=== PATIENT | female | born 2000 | race African-American/Black ===

== ENCOUNTER 2020-10-04 00:33 | Emergency (ER) | payer OTHER ==
[~2020-10-04] VITALS: Ht 157.5 cm; Wt 60.5 kg
--- NOTE | 2020-10-04 01:03 | PHYS DOC ---
General Adult EDM: Chief Complaint: ABDOMINAL PAIN HPI: HPI: 19-year-old female presents with right lower quadrant abdominal pain. Patient has had pain in this general area for last 4 days. It started off as a generalized pain vomiting and diarrhea. The diarrhea has improved but she still has intermittent vomiting. The last episode was this morning. The pain in her right lower quadrant has been persistent today and this evening. She decided she should come in for evaluation. She denies fever or chills. She has no vaginal discharge. She does not believe she is . Her menstrual cycles have been regular. Review of Systems: Review of Systems: Constitutional: Denies fever or chills Eyes: Denies change in visual acuity HENT: Denies nasal congestion or sore throat Respiratory: Denies cough or shortness of breath Cardiovascular: Denies chest pain or edema GI: RLQ abdominal pain, nausea, vomiting, diarrhea : Denies dysuria Musculoskeletal: Denies back pain or joint pain Integument: Denies rash Neurologic: Denies headache, focal weakness or sensory changes Endocrine: Denies polyuria or polydipsia Lymphatic: Denies swollen glands Psychiatric: Denies depression or anxiety Current Medications: Current Meds: Current Medications Medications (Trade) Dose Ordered Sig/Louisa Start Time Stop Time Status Last Admin Dose Admin Ondansetron HCl (Zofran) 4 mg 1X ONCE 10/04/20 01:00 10/04/20 01:01 UNV Sodium Chloride 1,000 ml @ 1,000 mls/hr 1X ONCE 10/04/20 01:00 10/04/20 01:59 UNV Physical Exam: PE: Constitutional: Well developed, well nourished, no acute distress, non-toxic appearance. [] HENT: Normocephalic, atraumatic, bilateral external ears normal, oropharynx moist, no oral exudates, nose normal. [] Eyes: PERRLA, EOMI, conjunctiva normal, no discharge. [] Neck: Normal range of motion, no tenderness, supple, no stridor. [] Cardiovascular:Heart rate regular rhythm, no murmur [] Lungs & Thorax: Bilateral breath sounds clear to auscultation [] Abdomen: Bowel sounds normal, soft, RLQ tenderness with rebound, positive psoas sign, no masses, no pulsatile masses. [] Skin: Warm, dry, no erythema, no rash. [] Back: No tenderness, no CVA tenderness. [] Extremities: No tenderness, no cyanosis, no clubbing, ROM intact, no edema. [] Neurologic: Alert and oriented X 3, normal motor function, normal sensory function, no focal deficits noted. [] Psychologic: Affect normal, judgement normal, mood normal. [] EKG: EKG: [] Radiology/Procedures: Radiology/Procedures: [] Impressions: CT SCAN OF THE ABDOMEN AND PELVIS WITH IV CONTRAST. History: Reason: RLQ abdominal pain Comparison:None. Procedure: Contiguous axial images of the abdomen and pelvis were performed after the administration of 75 cc of Omni 300 IV contrast. Oral contrast: No. Findings: The appendix is normal. The uterus appears normal. There are numerous follicles in the ovaries. The gallbladder is normal. Liver: Unremarkable Spleen: Unremarkable Pancreas: Unremarkable Adrenal Glands: Unremarkable Kidneys: Unremarkable There is no mass or lymphadenopathy. There is no free air. There is no free fluid. The urinary bladder appears normal. Impression: Numerous follicles in the ovaries could be polycystic ovarian disease. Clinical correlation is suggested. RS Compliance Statement: One or more of the following individualized dose reduction techniques were utilized for this examination: 1. Automated exposure control 2. Adjustment of the mA and/or kV according to patient size 3. Use of iterative reconstruction technique Electronically signed by: Cindy Ramon III, MD (10/04/2020 2:03 AM) [facility] DICTATED AND SIGNED BY: CINDY RAMON III, MD DATE: 10/04/20 0203 CC: JOY ROBERT DO; PCP,UNKNOWN ~ Heart Score: Risk Factors: Risk Factors: DM, Current or recent (<one month) smoker, HTN, HLP, family history of CAD, obesity. Risk Scores: Score 0 - 3: 2.5% MACE over next 6 weeks - Discharge Home Score 4 - 6: 20.3% MACE over next 6 weeks - Admit for Clinical Observation Score 7 - 10: 72.7% MACE over next 6 weeks - Early Invasive Strategies Course & Med Decision Making: Course & Med Decision Making Pertinent Labs and Imaging studies reviewed. (See chart for details) Patient's labs are unremarkable. Her CT scan is negative for appendicitis. She does have numerous follicles in the ovaries raising suspicion for polycystic ovarian disease. I have given the patient a copy of her CT report and advised that [place] She already has Zofran at home for nausea and vomiting. She is stable for disch arge at this time. [] Shola Disclaimer: Shola Disclaimer: This electronic medical record was generated, in whole or in part, using a voice recognition dictation system. Departure Departure: Impression: Primary Impression: Right lower quadrant abdominal pain Additional Impression: Follicular cyst of both ovaries Disposition: 01 DC HOME SELF CARE/HOMELESS Condition: STABLE Referrals: PCP,UNKNOWN (PCP) Patient Instructions: Polycystic Ovarian Syndrome JOY ROBERT DO Oct 04, 2020 01:03
[2020-10-04] MEDS ORDERED: IV NORMAL SALINE 1,000ML 1,000 ML IV ONE (01:15)
[2020-10-04] MEDS ORDERED: ONDANSETRON PF 4 MG/2 ML VIAL. IVP ONE (01:15)
[2020-10-04] MEDS ORDERED: CONTRAST GIVEN. MC PRN (01:30)
[2020-10-04] MEDS ORDERED: IOHEXOL 300 MG/ML 75 ML VIAL. IV ONE (01:30)
[2020-10-04 01:51] LABS: BASO % 0 % (0-3); EOS # 0.1 x10^3/uL (0.0-0.7); EOS % 1 % (0-3); HEMATOCRIT 43.4 % (36.0-47.0); HEMOGLOBIN 14.7 g/dL (12.0-15.5); LYMPH # 3.8 x10^3/uL (1.0-4.8); LYMPH % 44 % (24-48); MEAN CORPUSCULAR HEMOGLOBIN 32 pg (25-35); MEAN CORPUSCULAR HGB CONC 34 g/dL (31-37); MEAN CORPUSCULAR VOLUME 94 fL (79-100); MONO # 0.7 x10^3/uL (0.0-1.1); MONO % 8 % (0-9); NEUT # 4.1 x10^3uL (1.8-7.7); NEUT % 47 % (31-73); PLATELET COUNT 352 x10^3/uL (140-400); RED BLOOD COUNT 4.62 x10^6/uL (3.50-5.40); RED CELL DISTRIBUTION WIDTH 12.4 % (11.5-14.5); WHITE BLOOD COUNT 8.8 x10^3/uL (4.0-11.0)
[2020-10-04 01:59] LABS: CALCIUM 9.1 mg/dL (8.5-10.1); CREATININE 0.9 mg/dL (0.6-1.0); GFR 97.6; POTASSIUM 3.4 mmol/L (3.5-5.1)
[2020-10-04 01:59] LABS: BACTERIA,URINE FEW /HPF (0-FEW); BILIRUBIN,URINE NEG (NEG); CLARITY,URINE HAZY; COLOR,URINE YELLOW; GLUCOSE,URINE NEG (NEG); NITRITE,URINE NEG (NEG); RBC,URINE 0 /HPF (0-2); SQUAMOUS EPITHELIAL CELL,UR MANY /LPF; UROBILINOGEN,URINE 0.2 mg/dL (0.2 mg/dL)
--- NOTE | 2020-10-04 02:06 | RAD ---
CT SCAN OF THE ABDOMEN AND PELVIS WITH IV CONTRAST. History: Reason: RLQ abdominal pain Comparison:None. Procedure: Contiguous axial images of the abdomen and pelvis were performed after the administration of 75 cc of Omni 300 IV contrast. Oral contrast: No. Findings: The appendix is normal. The uterus appears normal. There are numerous follicles in the ovaries. The gallbladder is normal. Liver: Unremarkable Spleen: Unremarkable Pancreas: Unremarkable Adrenal Glands: Unremarkable Kidneys: Unremarkable There is no mass or lymphadenopathy. There is no free air. There is no free fluid. The urinary bladder appears normal. Impression: Numerous follicles in the ovaries could be polycystic ovarian disease. Clinical correlation is suggested. PQRS Compliance Statement: One or more of the following individualized dose reduction techniques were utilized for this examination: 1. Automated exposure control 2. Adjustment of the mA and/or kV according to patient size 3. Use of iterative reconstruction technique Electronically signed by: Kevin Ramon III, MD (10/04/2020 2:03 AM) [facility]
[2020-10-04 02:07] LABS: ALBUMIN 4.3 g/dL (3.4-5.0); ALBUMIN/GLOBULIN RATIO 1.1 (1.0-1.7); TOTAL BILIRUBIN 0.2 mg/dL (0.2-1.0); TOTAL PROTEIN 8.1 g/dL (6.4-8.2)
[2020-10-04 02:32] VITALS: BP 140/96
== END 2020-10-04 02:32 | disposition home or self-care (01) ==
LOC: ER 00:33
DX: N83.02 Follicular cyst of left ovary (principal); N83.01 Follicular cyst of right ovary; R11.2 Nausea with vomiting, unspecified
CPT/HCPCS: 36415; 74177; 80053; 81001; 81025; 85025; 96361; 96374; 99285; J2405; J7030; Q9967

== ENCOUNTER 2020-12-01 09:20 | Emergency (ER) | payer OTHER ==
[~2020-12-01] VITALS: Ht 157.5 cm; Wt 58.3 kg
--- NOTE | 2020-12-01 10:02 | PHYS DOC ---
Past History Past Medical History: Migraines Past Surgical History: Tonsillectomy Alcohol Use: None General Adult EDM: Chief Complaint: ABDOMINAL PAIN HPI: HPI: This is a pleasant 20-year-old female with a history of ovarian cysts who has been having intermittent right-sided pelvic pain for about 2 months. Her pain is a sharp shooting pain that comes and goes. She takes [id number] medication for some relief. She had been seen a few months ago in the ER and discharged. Her pain worsened yesterday and so she comes in today. The pain is nonradiating. She has had nausea and vomiting. She denies any changes in her bowel habits. She denies fevers chills or rashes. She denies any abdominal surgeries. Review of systems negative for chest pain shortness of breath. Positive for nausea and vomiting. Negative for fevers chills or rash. . She denies being . She denies vaginal bleeding All other review of systems negative. ED course: 20-year-old female presenting with lower abdominal/pelvic pain. Allergies: Allergies: Allergies Coded Allergies Type Severity Reaction Last Updated Verified No Known Allergies Allergy Unknown 12/01/20 Yes Physical Exam: PE: Constitutional: Well developed, well nourished, no acute distress, non-toxic appearance. [] HENT: Normocephalic, atraumatic, bilateral external ears normal, oropharynx moist, no oral exudates, nose normal. [] Eyes: PERRLA, EOMI, conjunctiva normal, no discharge. [] Neck: Normal range of motion, no tenderness, supple, no stridor. [] Cardiovascular:Heart rate regular rhythm, no murmur [] Lungs & Thorax: Bilateral breath sounds clear to auscultation [] Abdomen: Bowel sounds normal, soft, mildly tender to palpation of the lower right quadrant, no masses, no pulsatile masses. [] No rebound tenderness or guarding. Skin: Warm, dry, no erythema, no rash. [] Back: No tenderness, no CVA tenderness. [] Extremities: No tenderness, no cyanosis, no clubbing, ROM intact, no edema. [] Neurologic: Alert and oriented X 3, normal motor function, normal sensory function, no focal deficits noted. [] Psychologic: Affect normal, judgement normal, mood normal. [] EKG: EKG: [] Radiology/Procedures: Radiology/Procedures: [] Heart Score: Risk Factors: Risk Factors: DM, Current or recent (<one month) smoker, HTN, HLP, family history of CAD, obesity. Risk Scores: Score 0 - 3: 2.5% MACE over next 6 weeks - Discharge Home Score 4 - 6: 20.3% MACE over next 6 weeks - Admit for Clinical Observation Score 7 - 10: 72.7% MACE over next 6 weeks - Early Invasive Strategies Course & Med Decision Making: Course & Med Decision Making Pertinent Labs and Imaging studies reviewed. (See chart for details) [] Dragon Disclaimer: Dragon Disclaimer: This electronic medical record was generated, in whole or in part, using a voice recognition dictation system. Departure Departure: Impression: Primary Impression: Abdominal pain Additional Impression: UTI (urinary tract infection) Disposition: 01 DC HOME SELF CARE/HOMELESS Condition: STABLE Referrals: VERÓNICA IRIZARRY DO (PCP) Patient Instructions: Urinary Tract Infection Scripts Nitrofurantoin Monohyd/M-Cryst (MACROBID 100 MG CAPSULE) 100 Mg Capsule 1 CAP PO BID for uti for 10 Days, #20 CAP 0 Refills Prov: BREANNA SARKAR MD 12/01/20 BREANNA SARKAR MD Dec 01, 2020 10:01
[2020-12-01] MEDS ORDERED: CONTRAST GIVEN. MC PRN (10:15)
[2020-12-01] MEDS ORDERED: IOHEXOL 300 MG/ML 75 ML VIAL. IV ONE (10:15)
[2020-12-01 10:45] LABS: BACTERIA,URINE 0 /HPF (0-FEW); BILIRUBIN,URINE NEG (NEG); CLARITY,URINE HAZY; COLOR,URINE YELLOW; GLUCOSE,URINE NEG (NEG); NITRITE,URINE NEG (NEG); RBC,URINE 0 /HPF (0-2); SQUAMOUS EPITHELIAL CELL,UR MANY /LPF
[2020-12-01] MEDS ORDERED: IV NORMAL SALINE 1,000ML 1,000 ML IV ONE (10:45)
[2020-12-01] MEDS ORDERED: ONDANSETRON PF 4 MG/2 ML VIAL. IVP ONE (10:45)
[2020-12-01 10:46] LABS: AMORPHOUS SEDIMENT,UR PRESENT /HPF; HYALINE CASTS, URINE OCC /HPF
[2020-12-01 10:54] LABS: BASO % 0 % (0-3); EOS % 1 % (0-3); HEMATOCRIT 40.6 % (36.0-47.0); HEMOGLOBIN 14.1 g/dL (12.0-15.5); LYMPH # 1.6 x10^3/uL (1.0-4.8); LYMPH % 34 % (24-48); MEAN CORPUSCULAR HEMOGLOBIN 32 pg (25-35); MEAN CORPUSCULAR HGB CONC 35 g/dL (31-37); MEAN CORPUSCULAR VOLUME 92 fL (79-100); MONO # 0.4 x10^3/uL (0.0-1.1); MONO % 8 % (0-9); NEUT # 2.7 x10^3uL (1.8-7.7); NEUT % 57 % (31-73); PLATELET COUNT 326 x10^3/uL (140-400); RED BLOOD COUNT 4.39 x10^6/uL (3.50-5.40); RED CELL DISTRIBUTION WIDTH 12.2 % (11.5-14.5); WHITE BLOOD COUNT 4.7 x10^3/uL (4.0-11.0)
[2020-12-01 11:04] LABS: CALCIUM 8.9 mg/dL (8.5-10.1); CREATININE 0.9 mg/dL (0.6-1.0); GFR 96.6; POTASSIUM 3.7 mmol/L (3.5-5.1)
[2020-12-01 11:11] LABS: DIRECT BILIRUBIN 0.2 mg/dL (0.0-0.2); TOTAL BILIRUBIN 0.7 mg/dL (0.2-1.0); TOTAL PROTEIN 7.5 g/dL (6.4-8.2)
--- NOTE | 2020-12-01 11:56 | RAD ---
CT ABDOMEN+PELVIS W History: Reason: ABD PAIN Comparison: 10/04/2020 Technique: After administration of intravenous contrast, helical CT of the abdomen and pelvis was per formed from the lung bases through the ischial tuberosities. Coronal and sagittal reconstructions wer e obtained. 75 mL of Omnipaque 350 were used. One or more of the following dose reduction techniques were utilized: Automated exposure control (AEC), Adjustment of mA and/or kV according to patient size , Use of iterative reconstruction technique such as ASiR, CT scan done according to ALARA and image g ently/image wisely Abdomen Findings: The visualized lung bases are clear. The liver, gallbladder, pancreas, spleen, and bilateral adrenal glands are normal. Symmetric renal enhancement. There is no focal renal mass. There is no hydronephrosis. The visualized loops of small bowel are normal. The visualized loops of large bowel are normal. Large colonic stool burden. There is no evidence of bowel obstruction. Appendix is normal. There is no free fluid. There is no mesenteric or retroperitoneal adenopathy. The abdominal aorta is normal in caliber. Pelvis Findings: Urinary bladder is partially distended and demonstrates circumferential wall thickening. No pelvic fr ee fluid. There is no pelvic or inguinal adenopathy. There is no acute bony abnormality. IMPRESSION: 1. No acute findings. Normal appendix. 2. Circumferential bladder wall thickening could relate to underdistention or potentially cystitis. C onsider urinalysis. 3. Large colonic stool burden may reflect constipation. Electronically signed by: Pete Campbell MD (12/01/2020 11:53 AM) [id number]
--- NOTE | 2020-12-01 11:57 | RAD ---
US PRE HYSTEROSALPINGOGRAM DATE: 12/01/2020 10:04 AM HISTORY: Reason: right sided abd/pelvic pain / Spl. Instructions: / History: COMPARISON: None. TECHNIQUE: Transabdominal pelvic ultrasound was performed. FINDINGS: The uterus measures 6.4 x 4.3 x 3.7 cm. The myometrium demonstrates normal echogenicity without focal lesion. The endometrial echo measures 4 mm. The right ovary measures 2.9 x 1.8 x 2.0 cm. The left ovary measures 2.2 x 1.5 x 1.2 cm. The bilatera l ovaries are physiologic in appearance. Normal vascularity in the bilateral ovaries by color Doppler examination. No free fluid. IMPRESSION: Physiologic appearance of the uterus and ovaries. Electronically signed by: Pete Campbell MD (12/01/2020 11:55 AM) [id number]
[2020-12-01] MEDS ORDERED: NITR100C62 PO (12:10)
[2020-12-01 12:33] VITALS: BP 112/55
== END 2020-12-01 12:30 | disposition home or self-care (01) ==
LOC: ER 09:20
DX: N39.0 Urinary tract infection, site not specified (principal); R11.2 Nausea with vomiting, unspecified; R10.2 Pelvic and perineal pain; G43.909 Migraine, unspecified, not intractable, without status migrainosus
CPT/HCPCS: 36415; 74177; 76856; 80048; 80076; 81001; 81025; 83690; 85025; 87086; 87491; 87591; 96360; 99285; J7030; Q9967

== ENCOUNTER 2021-06-08 18:37 | Emergency (ER) | payer OTHER ==
[~2021-06-08] VITALS: Ht 157.5 cm; Wt 56.9 kg
[~2021-06-08 18:37] MED LIST: NITR100C62 PO
[2021-06-08] MEDS ORDERED: IBUPROFEN 800 MG TABLET. PO ONE (19:15)
--- NOTE | 2021-06-08 19:19 | PHYS DOC ---
Past History Past Medical History: Ovarian Cyst Past Surgical History: Tonsillectomy Alcohol Use: None Adult General Chief Complaint Chief Complaint: ABDOMINAL PAIN HPI HPI Patient is a otherwise healthy 20-year-old female who presents to the emergency department with a month of intermittent lower abdominal cramping, 3 out of 10, dull and achy in nature, with no radiation. Denies any recent trauma, travels, illnesses, fevers, chest pain, shortness of breath, other abdominal pain, nausea, vomiting, diarrhea, dysuria, hematuria or blood in the stool. States she did recently stop the Depo Shot, a couple months ago and states that her menstrual cycle has been off since that and is 8 weeks out from her last her menstrual cycle. States she has been taking Tylenol at home which does seem to help. States she had an ultrasound done a month ago that did show some ovarian cysts with one being burst. Review of Systems Review of Systems Review of systems otherwise unremarkable except noted in HPI Current Medications Current Medications Current Medications Medications (Trade) Dose Ordered Sig/Louisa Start Time Stop Time Status Last Admin Dose Admin Ibuprofen (Motrin) 800 mg 1X ONCE 06/08/21 19:15 06/08/21 19:16 Allergies Allergies Allergies Coded Allergies Type Severity Reaction Last Updated Verified No Known Allergies Allergy Unknown 12/01/20 Yes Physical Exam Physical Exam Constitutional: Well developed, well nourished, no acute distress, non-toxic appearance. [] Eyes: conjunctiva normal, no discharge. [] Neck: Normal range of motion, no tenderness, supple, no stridor. [] Cardiovascular:Heart rate regular rhythm, no murmur [] Lungs & Thorax: Bilateral breath sounds clear to auscultation [] Abdomen: Bowel sounds normal, soft, no tenderness, no masses, no pulsatile masses. [] Skin: Warm, dry, no erythema, no rash. [] Back: no CVA tenderness. [] Extremities: No tenderness, ROM intact, no edema. [] Neurologic: Alert and oriented X 3, no focal deficits noted. [] Psychologic: Affect normal, judgement normal, mood normal. [] Current Patient Data Vital Signs Vital Signs Date Time Temp Pulse Resp B/P (MAP) Pulse Ox O2 Delivery O2 Flow Rate FiO2 06/08/21 18:50 98.6 72 20 130/75 100 Room Air Lab Results Laboratory Tests Test 06/08/21 19:04 POC Urine HCG, Qualitative hcg negative (Negative) EKG EKG [] Radiology/Procedures Radiology/Procedures [] Heart Score C/O Chest Pain: No Risk Factors: Risk Factors: DM, Current or recent (<one month) smoker, HTN, HLP, family history of CAD, obesity. Risk Scores: Risk Factors: DM, Current or recent (<one month) smoker, HTN, HLP, family history of CAD, obesity. Course & Med Decision Making Course & Med Decision Making Patient is a 20-year-old female presents to the emergency department with a month of intermittent lower abdominal cramping and abnormal menstrual cycle Vital signs not concerning. Physical exam noted above. Urine negative. Given ibuprofen. Patient with a history of abnormal menstrual cycle and ovarian cyst. Patient nontoxic with normal vitals and pain controlled with ibuprofen. Patient also waiting on upcoming [employer] establishment of care. Started on Keflex for UTI. Discussed all findings with patient and need for antibiotic course. Discussed pain management at home. Advised to follow-up with primary care and [employer]. Patient grateful, verbalized understanding and agreed with plan of discharge. [] Dragon Disclaimer Dragon Disclaimer This electronic medical record was generated, in whole or in part, using a voice recognition dictation system. Departure Departure: Impression: Primary Impression: Abdominal cramping Additional Impression: Urinary tract infection Disposition: HOME / SELF CARE / HOMELESS Condition: GOOD Referrals: KOBI EDWARDS-Aarti (PCP) Patient Instructions: Abdominal Pain (Nonspecific) Additional Instructions: Thank you for coming into the emergency department tonight and allowing us to take care of you. Your urine was negative. Your urinalysis did not suggest urinary tract infection at this time. Your vital signs were appropriate as was your exam. You were given some ibuprofen and discussed pain management at home with Tylenol and ibuprofen. Please call your primary care physician soon as you can to update on ED visit and continue your research on establishing care with an [employer]. Please come back to the emergency department immediately with new or concerning symptoms as discussed. Scripts Cephalexin (CEPHALEXIN) 500 Mg Capsule 1 CAP PO BID for UTI for 5 Days, #10 CAP Prov: BETSY WEEKS MD 06/08/21 Problem Qualifiers BETSY WEEKS MD Jun 08, 2021 19:19
[2021-06-08 19:50] VITALS: BP 124/74
[2021-06-08 19:51] LABS: BILIRUBIN,URINE NEG (NEG); CLARITY,URINE CLOUDY; COLOR,URINE YELLOW; GLUCOSE,URINE NEG (NEG)
[2021-06-08 19:52] LABS: BACTERIA,URINE MANY /HPF (0-FEW); NITRITE,URINE NEG (NEG); RBC,URINE RARE /HPF (0-2)
[2021-06-08 19:53] LABS: SQUAMOUS EPITHELIAL CELL,UR MOD /LPF
[2021-06-08] MEDS ORDERED: CEPH500C PO (20:10)
[2021-06-08] MEDS ORDERED: CEPHALEXIN 250 MG CAPSULE PO ONE (20:15)
== END 2021-06-08 20:15 | disposition home or self-care (01) ==
LOC: ER 18:37
DX: N39.0 Urinary tract infection, site not specified (principal); Z32.02 Encounter for pregnancy test, result negative
CPT/HCPCS: 81001; 81025; 87086; 99283